=== PATIENT | female | born 1935 | race Caucasian/White ===

== ENCOUNTER → 2017-08-18 | Outpatient (CLI) | payer MEDICARE, BC ==
[~2017-08-18] MED LIST: LIPITOR 10MG10 MG PO; NAPROSYN500 MG PO; SYNTHROID0.088 MG/T PO
== END ==
LOC: COL.RAD 14:03
DX: R10.9 Unspecified abdominal pain (principal)
CPT/HCPCS: Q9967

== ENCOUNTER → 2017-10-06 | Outpatient (CLI) | payer MEDICARE, BC | LOC: MHCPAIN 07:57 | DX: G89.29 Other chronic pain (principal); M79.2 Neuralgia and neuritis, unspecified; M79.1 Myalgia | CPT/HCPCS: G0463 ==

== ENCOUNTER → 2017-10-07 | Outpatient (CLI) | payer MEDICARE, BC | LOC: MHCPAIN 13:53 | DX: G57.82 Other specified mononeuropathies of left lower limb (principal) | CPT/HCPCS: J1040 ==

== ENCOUNTER → 2017-11-10 | Outpatient (CLI) | payer MEDICARE, BC | LOC: MHCPAIN 08:30 | DX: G89.29 Other chronic pain (principal); M79.2 Neuralgia and neuritis, unspecified; M79.1 Myalgia | CPT/HCPCS: G0463 ==

== ENCOUNTER → 2017-12-02 | Outpatient (CLI) | payer MEDICARE, BC | LOC: MHCPAIN 09:25 | DX: G89.29 Other chronic pain (principal); M79.1 Myalgia; M79.2 Neuralgia and neuritis, unspecified | CPT/HCPCS: G0463 ==

== ENCOUNTER → 2017-12-08 | Outpatient (CLI) | payer MEDICARE, BC | LOC: MHCPAIN 09:45 | DX: M47.817 Spondylosis without myelopathy or radiculopathy, lumbosacral region (principal) | CPT/HCPCS: J1100; J2250; J3010; Q9967 ==

== ENCOUNTER → 2017-12-22 | Outpatient (CLI) | payer MEDICARE, BC | LOC: MHCPAIN 09:17 | DX: G89.29 Other chronic pain (principal); M79.2 Neuralgia and neuritis, unspecified; M79.1 Myalgia | CPT/HCPCS: G0463 ==

== ENCOUNTER → 2018-08-06 | Outpatient (CLI) | payer MEDICARE, BC | LOC: MC.RAD 14:48 | DX: Z12.31 Encounter for screening mammogram for malignant neoplasm of breast (principal) ==

== ENCOUNTER → 2020-10-25 | Outpatient (CLI) | payer MEDICARE, BC | LOC: MC.RAD 08:15 | DX: Z12.31 Encounter for screening mammogram for malignant neoplasm of breast (principal) ==

== ENCOUNTER → 2021-03-01 | Outpatient (CLI) | payer MEDICARE, BC | LOC: COL.RAD 12:07 | DX: N89.8 Other specified noninflammatory disorders of vagina (principal); N85.00 Endometrial hyperplasia, unspecified ==

== ENCOUNTER → 2021-07-11 | Outpatient (CLI) | payer MEDICARE, BC | LOC: COL.RAD 07-06 10:00 | DX: M47.819 Spondylosis without myelopathy or radiculopathy, site unspecified (principal); I70.90 Unspecified atherosclerosis | CPT/HCPCS: Q9967 ==

== ENCOUNTER → 2021-07-27 | Outpatient (CLI) | payer MEDICARE, BC | LOC: COL.RAD 10:19 | DX: M51.25 Other intervertebral disc displacement, thoracolumbar region (principal); M51.35 Other intervertebral disc degeneration, thoracolumbar region; M51.45 Schmorl's nodes, thoracolumbar region; M40.205 Unspecified kyphosis, thoracolumbar region ==

== ENCOUNTER → 2021-11-20 | Outpatient (CLI) | payer MEDICARE, BC | LOC: MHCPAIN 11:03 | DX: M54.16 Radiculopathy, lumbar region (principal); M51.36 Other intervertebral disc degeneration, lumbar region | CPT/HCPCS: G0463 ==

== ENCOUNTER → 2021-11-29 | Outpatient (CLI) | payer MEDICARE, BC | LOC: MHCPAIN 09:16 | DX: M47.817 Spondylosis without myelopathy or radiculopathy, lumbosacral region (principal); M54.50 Low back pain, unspecified; M53.3 Sacrococcygeal disorders, not elsewhere classified | CPT/HCPCS: J1100; Q9967 ==

== ENCOUNTER → 2021-12-03 | Outpatient (CLI) | payer MEDICARE, BC ==
[2021-12-03 10:00] LABS: MAGNESIUM 2.2 mg/dL (1.6-2.6)
[2021-12-04 11:52] LABS: LYME DISEASE ANTIBODIES Negative (Negative)
[2021-12-04 12:52] LABS: ANA SCREEN with REFLEX Positive (Negative)
== END ==
LOC: COL.LAB 08:05
PROVIDERS: Psychiatry & Neurology Neurology
DX: G62.9 Polyneuropathy, unspecified (principal); E61.1 Iron deficiency; E53.1 Pyridoxine deficiency; E53.9 Vitamin B deficiency, unspecified; E61.2 Magnesium deficiency; R73.02 Impaired glucose tolerance (oral)

== ENCOUNTER → 2021-12-05 | Outpatient (CLI) | payer MEDICARE, BC | LOC: MHCPAIN 14:53 | DX: M51.36 Other intervertebral disc degeneration, lumbar region (principal); M54.50 Low back pain, unspecified; M53.3 Sacrococcygeal disorders, not elsewhere classified; G57.21 Lesion of femoral nerve, right lower limb | CPT/HCPCS: G0463 ==

== ENCOUNTER → 2021-12-25 | Outpatient (CLI) | payer MEDICARE, BC | LOC: MHCPAIN 10:59 | DX: M47.816 Spondylosis without myelopathy or radiculopathy, lumbar region (principal); M51.36 Other intervertebral disc degeneration, lumbar region; M54.50 Low back pain, unspecified; M53.3 Sacrococcygeal disorders, not elsewhere classified; G57.21 Lesion of femoral nerve, right lower limb | CPT/HCPCS: G0463 ==

== ENCOUNTER → 2022-02-27 | Outpatient (CLI) | payer MEDICARE, BC | LOC: MHCPAIN 16:01 | DX: M51.36 Other intervertebral disc degeneration, lumbar region (principal); M54.50 Low back pain, unspecified; M53.3 Sacrococcygeal disorders, not elsewhere classified; G57.21 Lesion of femoral nerve, right lower limb | CPT/HCPCS: G0463 ==

== ENCOUNTER → 2022-06-26 | Outpatient (CLI) | payer MEDICARE, BC | LOC: MHCPAIN 11:23 | DX: M79.604 Pain in right leg (principal); G57.21 Lesion of femoral nerve, right lower limb | CPT/HCPCS: G0463 ==

== ENCOUNTER 2023-09-06 07:36 | Emergency (ER) | payer MEDICARE, BC ==
[~2023-09-06] VITALS: Ht 165.1 cm; Wt 58.2 kg
[2023-09-06 07:55] VITALS: TEMP 97.6
[2023-09-06] MEDS ORDERED: Ondansetron 4 MG/2 ML VIAL IV ONE (08:00)
[2023-09-06] MEDS ORDERED: NS 1,000 ML IV ONE (08:00)
[2023-09-06] MEDS ORDERED: fentaNYL 50 MCG/ML 2 ML VIAL IV ONE ×3 (08:15→10:30)
[2023-09-06 08:30] LABS: BASO # 0.1 K/mm3 (0.0-0.2); BASO % 0.6 % (0.0-2.0); EOS % 0.2 % (0.0-4.0); GRAN # 6.7 K/mm3 (1.4-6.5); HEMATOCRIT 38.2 % (37.0-47.0); HEMOGLOBIN 12.5 g/dl (12.5-16.0); LYMPH % 21.8 % (20.0-51.0); MEAN CELL VOLUME 94 fl (80.0-100.0); MEAN CORPUSCULAR HEMOGLOBIN 31 pg (27-31); MEAN CORPUSCULAR HGB CONC 33 g/dl (33.0-37.0); MEAN PLATELET VOLUME 11.2 fl (7.4-10.4); MONO # 0.5 K/mm3 (0.1-0.6); PLATELET COUNT 242 K/mm3 (130-400); RED BLOOD COUNT 4.06 M/mm3 (4.10-5.30); REDCELL DISTRIBUTION WIDTH-CV 13.2 % (11.5-14.5)
[2023-09-06] MEDS ORDERED: Morphine 4 MG/ML VIAL IV ONE (08:45)
[2023-09-06 08:49] LABS: ALBUMIN 4.1 g/dL (3.4-4.8); BILIRUBIN,TOTAL 0.4 mg/dL (0.2-1.2); C-REACTIVE PROTEIN 0.16 mg/dL (0.00-0.50); CREATININE, serum 0.87 mg/dL (0.57-1.11); POTASSIUM 4.2 mEq/L (3.5-4.5); TOTAL PROTEIN 7.3 g/dl (6.2-8.1)
[2023-09-06 09:08] LABS: PH 5.5 (5.0-8.5); URINE APPEARANCE CLEAR (CLEAR/HAZY); URINE BLOOD NEGATIVE (NEGATIVE); URINE COLOR YELLOW (YELLOW); URINE GLUCOSE NEGATIVE (NEGATIVE); URINE KETONE NEGATIVE (NEGATIVE); URINE NITRATE NEGATIVE (NEGATIVE); URINE PROTEIN(semi-quant) NEGATIVE (NEGATIVE); URINE UROBILINOGEN 0.2 E.U/dL (0.2-1.0)
[2023-09-06] MEDS ORDERED: Iohexol 300 - 100 ML VIAL IV ONE (09:51)
[2023-09-06] MEDS ORDERED: NS 100 ML IV SCH (09:51)
[2023-09-06] MEDS ORDERED: valACYclovir 500 MG TAB PO ONE (10:30)
[2023-09-06] MEDS ORDERED: predniSONE 10 MG TAB PO ONE (10:30)
[2023-09-06] MEDS ORDERED: HYDROcodone/Acetaminophen 7.5-325 MG TAB PO ONE (10:30)
[2023-09-06 10:31] LABS: COLLECTION METHOD CLEAN CATCH
[2023-09-06] MEDS ORDERED: VALTREX1 GM PO (10:48)
[2023-09-06] MEDS ORDERED: PREDNISONE50 MG PO (10:48)
[2023-09-06 11:06] VITALS: BP 131/76; PULSE 80
== END 2023-09-06 11:07 | disposition home or self-care (01) ==
LOC: COL.ER 07:36
PROVIDERS: Emergency Medicine
DX: R10.9 Unspecified abdominal pain (principal); R11.0 Nausea; B02.9 Zoster without complications
CPT/HCPCS: J2270; J2405; J3010; J7030; J7512; Q9967

== ENCOUNTER 2023-09-10 01:54 | Emergency (ER) | payer MEDICARE, BC ==
[~2023-09-10] VITALS: Ht 165.1 cm; Wt 59.1 kg
[~2023-09-10 01:54] MED LIST changes: +PREDNISONE50 MG PO; +VALTREX1 GM PO
[2023-09-10 02:00] VITALS: TEMP 98.3
[2023-09-10] MEDS ORDERED: NS 500 ML IV ONE (02:30)
[2023-09-10] MEDS ORDERED: Morphine 4 MG/ML VIAL IV ONE (02:30)
[2023-09-10 02:48] LABS: BASO # 0.1 K/mm3 (0.0-0.2); BASO % 0.5 % (0.0-2.0); EOS % 0.3 % (0.0-4.0); GRAN % 57.8 % (42.2-75.2); HEMOGLOBIN 12.1 g/dl (12.5-16.0); MEAN CELL VOLUME 93 fl (80.0-100.0); MEAN CORPUSCULAR HEMOGLOBIN 31 pg (27-31); MEAN CORPUSCULAR HGB CONC 33 g/dl (33.0-37.0); MEAN PLATELET VOLUME 11.9 fl (7.4-10.4); MONO % 7.9 % (1.7-9.3); PLATELET COUNT 247 K/mm3 (130-400); RED BLOOD COUNT 3.96 M/mm3 (4.10-5.30); REDCELL DISTRIBUTION WIDTH-CV 13.2 % (11.5-14.5)
[2023-09-10 02:52] LABS: HEMATOCRIT 36.9 % (37.0-47.0)
[2023-09-10 02:53] LABS: ALBUMIN 4.3 g/dL (3.4-4.8); BILIRUBIN,TOTAL 0.4 mg/dL (0.2-1.2); C-REACTIVE PROTEIN 0.12 mg/dL (0.00-0.50); CALCIUM 9.9 mg/dL (8.4-10.2); CREATININE, serum 0.83 mg/dL (0.57-1.11); TOTAL PROTEIN 7.4 g/dl (6.2-8.1)
[2023-09-10 03:40] VITALS: BP 159/73; PULSE 63
== END 2023-09-10 03:40 | disposition home or self-care (01) ==
LOC: COL.ER 01:54
PROVIDERS: Emergency Medicine
DX: R10.32 Left lower quadrant pain (principal); D72.829 Elevated white blood cell count, unspecified
CPT/HCPCS: J2270; J7040